=== PATIENT | female | born 1960 | race African-American/Black ===

== ENCOUNTER 2017-01-16 16:52 | Observation (INO) | payer OTHER ==
[~2017-01-16 16:52] MED LIST: ISOVUE-370 76%-LOCM 1 ML ONE
[2017-01-16 17:34] LABS: #Basophils 0.1 thou/uL (0.0-0.2); #Eosinphils 0.1 thou/uL (0.0-0.7); #Lymphocytes 2.7 thou/uL (1.20-3.40); #Monocytes 0.5 thou/uL (0.11-0.59); #Neutrophils 3.1 thou/uL (1.40-6.50); %Basophils 1.6 % (0.0-1.0); %Eosinophils 1.9 % (0.0-10.0); %Monocytes 7.3 % (0.0-10.0); Hematocrit 38.8 % (36.0-47.0); Mean Platelet Volume 7.9 fL (7.4-10.4); Red Blood Cell (RBC) Count 4.17 mill/uL (4.20-5.40); White Blood Cell (WBC) Count 6.5 thou/uL (4.8-10.8)
[2017-01-16 17:41] LABS: PTT 32.8 SEC (22.9-36.1); Prothrombin Time 13.4 SEC (12.0-14.7)
[2017-01-16 18:01] LABS: ALT (SGPT) 28 U/L (8-55); AST (SGOT) 26 U/L (5-34); Alkaline Phosphatase 108 U/L (40-150); Anion Gap 12 mmol/L (10-20); BUN (Urea Nitrogen) 20 mg/dL (9.8-20.1); Bilirubin, Total 0.2 mg/dL (0.2-1.2); CK (CPK) 93 U/L (29-168); Calc. Creatinine Clearance 0 mL/min (70-130); Calcium 9.5 mg/dL (7.8-10.44); Carbon Dioxide 26 mmol/L (22-29); Chloride 104 mmol/L (98-107); Estimated GFR-MDRD 71; Globulin 4.2 g/dL (2.4-3.5); Lipase 37 U/L (8-78)
[2017-01-16 18:02] LABS: Troponin I Less than 0.010 ng/mL (< 0.028)
--- NOTE | 2017-01-16 18:05 | RAD ---
PORTABLE AP CHEST X-RAY 01/16/17 HISTORY: Chest pain. COMPARISON: 01/27/14. FINDINGS: Cardiac silhouette is magnified by projection but does appear mildly enlarged. Calcified mediastinal and left hilar lymph nodes are again seen. Pulmonary vasculature is within normal limits and the marcelina ngs remain clear. There has been no significant interval change when compared to the prior exam. IMPRESSION: 1. No acute cardiopulmonary process. 2. Mild cardiomegaly. POS: [facility]
[2017-01-16] MEDS ORDERED: Nitroglycerin 2% Ointment 1 INCH/1 GM Packet ONE (19:26)
--- NOTE | 2017-01-16 19:37 | CT ---
CT ANGIOGRAM THORAX WITH IV CONTRAST AND 3D RECONSTRUCTIONS 01/16/17 HISTORY: Substernal chest pain with pressure-like symptoms. COMPARISON: 05/22/12. FINDINGS: No filling defects are seen in the pulmonary arteries to suggest a pulmonary embolus. The heart is enlarged. Minimal vascular calcifications are seen in the thoracic aorta. The thoracic aorta is normal in caliber without evidence of an aortic dissection. There are calcified left hilar lymph nodes with a few scattered calcified granulomata within the lungs as well as in the liver and spleen. No noncalcified pulmonary nodule, mass or pleural effusion is seen bilaterally. There is no evidence of lymphadenopathy. There is a heterogeneous structure seen within the fundus of the gallbladder measuring 4.4 cm which may represent a very large gallbladder calculus, but this cannot be definitively confirmed on this e xam. This area was not imaged on the prior study. No adjacent inflammatory changes are appreciated. IMPRESSION: 1. Heterogeneous structure within the gallbladder fundus which is thought to represent a large gallbladder calculus, but this cannot be definitely confirmed on this exam. Nonemergent right upper quadrant ultrasound examination is recommended. 2. No CT evidence of a pulmonary embolus. 3. Cardiomegaly. POS: [facility]
[2017-01-16] MEDS ORDERED: Acetaminophen 325 MG TAB PO PRN ×2 (20:40→20:54)
[2017-01-16 20:50] VITALS: BMI 37.1
[2017-01-16] MEDS ORDERED: Ondansetron ODT 4 MG TAB PO PRN (20:54)
[2017-01-16 21:29] LABS: Troponin I Less than 0.010 ng/mL (< 0.028)
[2017-01-16] MEDS ORDERED: Potassium Chloride 20 MEQ TAB PO SCH (21:30)
[2017-01-16] MEDS ORDERED: diphenhydrAMINE HCl 50 MG/ML 1 ML VIAL IVP PRN (22:24)
[2017-01-16 23:55] LABS: Hemoglobin A1c 5.5 % (4.0-6.0)
[2017-01-17 00:09] LABS: Troponin I Less than 0.010 ng/mL (< 0.028)
--- NOTE | 2017-01-17 04:28 | HP ---
DATE OF ADMISSION: 01/16/2017 ATTENDING: Dr. Katie Bella RESIDENT: Dr. Yamil Jefferson's H\T\P was reviewed and case discussed. Pertinent portions of the history and physical repeated by myself. I agree with the assessment and plan with the following addendum. Ms. Fierro is a 56-year-old female with a history of hypertension who presents today with a midsternal chest pain that she describes as pulling. The pain was relieved by morphine in t he ER. It has currently returned. The EKG remained normal. Her EKG shows signs of LVH, but otherw ise normal. Her troponins are negative x2. She has a heart score of 3 with risk factors including family history of hypertension. We will do a stress test tomorrow given her elevated heart score to rule out coronary artery disease or cardiac ischemia. Her symptoms may also be caused by reflux es ophagitis. We will start Protonix tonight. In addition, she endorses dizzy spells for the last 2we eks. Her lab work is normal with no evidence of anemia or hypothyroidism or any other potential causes fo r her dizziness. Given a negative workup, but she will likely need outpatient evaluation for this. She also has a mildly elevated blood pressure at 167/95. We will restart her home medications and monitor this while she is here.
[2017-01-17 04:57] LABS: Anion Gap 12 mmol/L (10-20); BUN (Urea Nitrogen) 18 mg/dL (9.8-20.1); Calc. Creatinine Clearance 144 mL/min (70-130); Calcium 9.5 mg/dL (7.8-10.44); Carbon Dioxide 22 mmol/L (22-29); Chloride 108 mmol/L (98-107); Estimated GFR-MDRD Greater than 90
--- NOTE | 2017-01-17 05:15 | HP-2 ---
CODE STATUS: Full. PRIMARY CARE PHYSICIAN: Josie Narvaez M.D. ATTENDING PHYSICIAN: Katie Bella D.O. RESIDENT: Yamil Jefferson D.O. HISTORIAN: Patient. SPECIALISTS: None. CHIEF COMPLAINT: Chest pain. HISTORY OF PRESENT ILLNESS: This is a 56-year-old female with the chief complaint of a pulling chest pain that began approximately at 1600 today. She admitted to associated lightheadedness, onset about the same time. She states that she may have passed out in a previous episode of lightheadness 2 weeks ago. She denies any prior history of similar symptoms before these most recent episodes. She describes the pain as nonradiating and constant until she was able to lay in the bed for a little while in the emergency room which allowed the pulling type pain to resolve. She denied any associated nausea, vomiting, shortness of breath, peripheral numbness, left arm or jaw pain. PAST MEDICAL HISTORY: Hypertension, osteoarthritis, prediabetes. PAST SURGICAL HISTORY: None. ALLERGIES: No known drug allergies. MEDICATIONS: Lisinopril/hydrochlorothiazide 10 mg/12.5 mg daily. FAMILY HISTORY: Maternal coronary artery disease. SOCIAL HISTORY: Tobacco; none. Alcohol; none. Drugs; none. REVIEW OF SYSTEMS: GENERAL: The patient denies fever, chills, changes in weight or appetite, night sweats. HEENT: Denies any vision changes, eye pain, nasal congestion or rhinorrhea. RESPIRATORY: Denies any cough, congestion, shortness of breath. CARDIOVASCULAR: Admits to chest pain, denies any palpitations, edema. GI: Denies nausea, vomiting, diarrhea. SKIN: Denies any rash or lesion. MUSCULOSKELETAL: Denies any pain or tenderness. NEUROLOGICAL: Denies any weakness or numbness, possible syncope. PSYCH: Denies any anxiety or depression. PHYSICAL EXAMINATION: VITAL SIGNS: Blood pressure is 167/95, pulse 75, respiratory rate 16, temperature max 98.0, pulse ox 100% on room air. Current weight 104 kilograms. GENERAL: The patient is alert and oriented x3, in no apparent distress. She is obese and appropriately interactive. HEENT: Pupils are equal, round and react to light and accommodation. Extraocular movements are intact. NECK: Neck is supple without lymphadenopathy. CARDIOVASCULAR: Regular rate and rhythm. No murmur or gallops. RESPIRATORY: Normal effort, no retractions. Clear to auscultation bilaterally. SKIN: Warm and dry. No cyanosis. ABDOMEN: Soft, nontender. Bowel sounds in all 4 quadrants. EXTREMITIES: No clubbing, cyanosis or edema. MUSCULOSKELETAL: Tone is normal. NEUROLOGICAL: No focal neurological deficits. Cranial nerves II through XII are grossly intact. PSYCH: Appropriate. LABORATORY: CBC; hemoglobin 12.9, hematocrit 39.8, white count 6.5, platelets 259, MCV 93. CMP; sodium 139, potassium 3.3, chloride 106, bicarbonate 26, BUN 20, creatinine 0.98, glucose 109, calcium 9.5, total serum protein 8.0, albumin 3.8, AST 26, ALT 28, alkaline phosphatase 108, total bilirubin 0.2, PT 13.4, INR 1.0, PTT 32.8, D-dimer 1.05, GFR 71, CK 93, CK-MB 0.8, troponin is negative x2. Lipase 37, BNP is negative. EKG is normal sinus rhythm, T-wave inversions in lead V1 and 2. Left axis deviation. Chest x-ray shows cardiomegaly with no acute processes. CTA shows cardiomegaly with negative PE, possible cholelithiasis. ASSESSMENT AND PLAN: 1. Typical chest pain, rule out cardiac etiology. Continue to trend troponin' s until there are 3 negative. Follow EKG. Admit to telemetry observation. Heart score is 3. Do a stress test in the morning. Order a lipid panel and TSH. 2. Hypertension. Continue home hydrochlorothiazide and lisinopril. The patient has been hypertensive since admission, likely secondary to stress or medication noncompliance. Monitor blood pressure and adjust medications as needed. 3. Prediabetes. Counseled on carb diet and heart healthy diet. Follow up outpatient. Order an A1c today. 4. Hypokalemia. The patient is asymptomatic. We will replace potassium and monitor basic metabolic panel in the morning. 5. D-dimer elevation. The patient has negative CTA. We will monitor clinically and have the patient with SCDs. 6. Possible cholelithiasis on CT. Will get a right upper quadrant ultrasound. This is possible etiology of the pain. 7. Morbid obesity. Counseled on weight loss. [facility] DIVISIONNakul
--- NOTE | 2017-01-17 06:48 | PDOC.FM ---
- Subjective Subjective: Patient had an episode of chest pain yesterday. It was associated with lightheadedness. She now states that is totally resolved. She denies sob, chest pain, cough, fever, or chills. She also denies n/v/d, abdominal pain. She has no other complaints at this time. - Objective Vital Signs & Weight: Vital Signs (12 hours) Temp Pulse Resp BP BP Pulse Ox 01/17/17 03:58 97.8 F 72 16 158/98 H 97 01/16/17 23:26 97.7 F 72 22 H 131/61 97 01/16/17 20:32 98.0 F 66 20 167/95 H 100 01/16/17 20:24 98.0 F 66 20 Weight Weight 107.586 kg I&O: 01/15/17 01/16/17 01/17/17 06:59 06:59 06:59 Intake Total 360 Balance 360 Result Diagrams: 01/16/17 17:24 01/17/17 04:06 <Armando Lorenzana - Last Filed: 01/17/17 11:03> - Objective Vital Signs & Weight: Vital Signs (12 hours) Temp Pulse Resp BP BP Pulse Ox 01/17/17 08:00 98.6 F 65 20 01/17/17 07:12 98.6 F 65 20 151/81 H 98 01/17/17 03:58 97.8 F 72 16 158/98 H 97 Weight Weight 107.586 kg I&O: 01/16/17 01/17/17 01/18/17 06:59 06:59 06:59 Intake Total 360 Balance 360 Result Diagrams: 01/16/17 17:24 01/17/17 04:06 <Aleksandr Portillo - Last Filed: 01/17/17 12:04> Phys Exam - Physical Examination HEENT: moist MMs Neck: no nodes, supple Respiratory: no wheezing, clear to auscultation bilateral Cardiovascular: RRR, no significant murmur Gastrointestinal: soft, non-tender, no distention, positive bowel sounds Musculoskeletal: no edema, pulses present Neurological: non-focal, normal sensation, moves all 4 limbs Psychiatric: normal affect, A&O x 3 <Armando Lorenzana - Last Filed: 01/17/17 11:03> Dx/Plan (1) Atypical chest pain Code(s): R07.89 - OTHER CHEST PAIN Status: Acute Plan: -No more chest pain -Will go for stress this AM. -Pending those results -Troponins negative x3 -ASCVD risk 6.7% will discuss moderate intensity statin therapy as outpatient -May be anxiety component. Will discuss anxiolytic medication -ASCVD risk 10% she will be initiated on statin and ASA as outpatient. (2) Hypertension Code(s): I10 - ESSENTIAL (PRIMARY) HYPERTENSION Status: Acute Plan: -Continue Lisinopril and HCTZ -Will consider increasing regimen to achieve better control. (3) Obesity Code(s): E66.9 - OBESITY, UNSPECIFIED Status: Acute Plan: Counseled on weight loss (4) Cholelithiasis Code(s): K80.20 - CALCULUS OF GALLBLADDER W/O CHOLECYSTITIS W/O OBSTRUCTION Status: Suspected Plan: Pending Abdominal US results (5) Cardiomegaly Code(s): I51.7 - CARDIOMEGALY Status: Acute Plan: -Found on CXR and CTA -Pending ECHO - Plan Plan: Pending test results and discharge planning made from there. <Armando Lorenzana - Last Filed: 01/17/17 11:03> Attending Addendum - Attending Addendum I personally evaluated the patient and discussed the management with Dr. Lorenzana. I agree with the History, Examination, Assessment and Plan documented above with any addition or exceptions noted below. Patient reports no recurrence of chest pain. She is scheduled for stress today and will wait on dispo for those results. Enzymes negative, unlikely cardiac in nature at this time. She will need ASA and statin at time of discharge. Echo pending due to cardiomegaly on XR. <Aleksandr Portillo - Last Filed: 01/17/17 12:04>
--- NOTE | 2017-01-17 08:07 | ULT ---
GALLBLADDER ULTRASOUND: HISTORY: Right upper quadrant pain. FINDINGS: Real-time imaging of the right upper quadrant shows an echogenic area with shadowing in the fundus r egion of the stomach which appears to represent a gallstone in addition to sludge within the gallbla dder. The gallbladder wall is 3-4 mm. It appears slightly thickened. The common duct is 3 mm. Te chnologist reports a negative ultrasound Mcintyre's sign. The pancreas region is unremarkable. The r ight kidney is normal in size and not obstructed. IMPRESSION: Shadowing from the region of the fundus of the stomach which appears to be related to a large gallst one. In addition, there is some tumefactive-appearing sludge seen within the gallbladder. The appe arance of the fundus region is slightly unusual in that the apparent stone is not as dense as typica [place] seen for the degree of shadowing, but it probably still represents a large stone and less likely some type of mass causing shadowing. The technologist reports a negative ultrasound Mcintyre's sign. POS: [facility]
[2017-01-17] MEDS ORDERED: Lisinopril/Hydrochlorothiazide 20/25 mg Tablet PO SCH (09:00)
[2017-01-17 15:23] VITALS: BP 156/96; TEMP 97.6
--- NOTE | 2017-01-18 01:29 | DIS-2 ---
DATE OF ADMISSION: 01/16/2017 DATE OF DISCHARGE: 01/17/2017 RESIDENT: Dr. Armando Lorenzana ADMITTING ATTENDING: Dr. Katie Bella DISCHARGE ATTENDING: Dr. Aleksandr Portillo CONSULTATIONS: None. PROCEDURES: 1. Transthoracic echocardiogram. 2. Exercise treadmill stress test. PRIMARY DIAGNOSES: 1. Atypical chest pain. 2. Hypertension. 3. Obesity. 4. Cardiomegaly. 5. Cholelithiasis. DISCHARGE MEDICATIONS: 1. Lisinopril/hydrochlorothiazide 20/25 mg. 2. Acetaminophen 650 mg. 3. Aspirin 81 mg. 4. Atorvastatin 40 mg. 5. Amlodipine 5 mg. DISCONTINUED MEDICATIONS: None. HISTORY OF PRESENT ILLNESS AND HOSPITAL COURSE: This is a 56-year-old female with a chief complaint of pulling chest pain that began approximately 4 o'clock on the day of admission. She admitted wit h associate lightheadedness onset of the above same time. She states that she may have passed out i n a previous episode of lightheadedness. She was weak. She denies any prior history of similar sym ptoms before these most recent episodes. She describes the pain is nonradiating and constant until she was able to lay in the bed for a little while in the emergency room which allowed the pulling ty pe pain to resolve. She denied any associated nausea, vomiting, shortness of breath, peripheral num bness, left arm or jaw pain. During the hospitalization, she was found to have an elevated D-dimer, lab and so she got a chest, thorax CTA that was negative for any pulmonary embolism. She did have a chest x-ray that showed a cardiomegaly and so that prompted to get an echocardiogram. The echocar diogram showed a left ventricle size being normal, the ejection fraction estimated to be 55-60%. Th e left atrium of normal size, structurally normal mitral valve with no evidence of mitral regurgitat ion and structurally normal aortic valve with no significant stenosis or regurgitation. Tricuspid v alve is structurally normal with trace tricuspid regurgitation. She also had an exercise stress zachary t that was negative for any ischemic pathology and was appropriate for her age other than poor exerc ise tolerance. She also on the CTA was noted to have a gallstone, so an abdominal ultrasound was or dered. The abdominal ultrasound showed a shadowing from the region of the fundus of the stomach, wh ich appears to be related to the large gallstone. In addition, there was some tumefactive appearing sludge seen within the gallbladder. The appearance of the fundus region is slightly unusual and th e apparent stone is not as dense is typically seen for the degree of shadowing, but if probably stil l represents a large stone and less likely some type of mass causing shadowing. The technologist re ports a negative ultrasound Mcintyre's sign. The patient did not have any further problems with chest pain or anything like that. She did have, not an elevated cholesterol, but she had a cholesterol o f 196 with a LDL of 121 and a triglyceride level of 100. She had troponins that were less than 0.01 . She had a hemoglobin A1c of 5.5. We calculated her ASCVD risk and it was about 10%, so it was de termined that she needed to be started on some statin therapy and an aspirin 81 mg going forward and so we initiated those during this hospitalization. She also has been dealing with not well control led hypertension with systolic blood pressures running from 150-180 and diastolic pressures running from 81-111, so she was started on amlodipine 5 mg and instructed to follow up with her primary care physician within 1 week to see if some more medication regimen changes need to be made. She was ot herwise in good condition and was agreeable with all the plans stated above. DISPOSITION: Stable. DISCHARGE INSTRUCTIONS: 1. Location: She will be discharged home into her own care. 2. Diet: Heart healthy diet and we did delinquency counselor on some exercise and weight loss regimen that would help her health out immensely. 3. Activity: As tolerated with no restrictions. 4. Followup: Follow up will be with Dr. Josie Narvaez at [facility] within 1 week. We wish her the best of luck and hope she has no other problems from a cardiac standpoint.
== END 2017-01-17 17:10 | disposition home or self-care (01) ==
LOC: ERS 16:52 → 2SW 19:20
PROVIDERS: ADMIT Family Medicine; ATTEND Family Medicine
DX: R07.89 Other chest pain (principal); I11.9 Hypertensive heart disease without heart failure; K80.20 Calculus of gallbladder without cholecystitis without obstruction; I07.1 Rheumatic tricuspid insufficiency; M19.90 Unspecified osteoarthritis, unspecified site; R73.03 Prediabetes; F17.200 Nicotine dependence, unspecified, uncomplicated; E87.6 Hypokalemia; E66.01 Morbid (severe) obesity due to excess calories; Z68.37 Body mass index [BMI] 37.0-37.9, adult; Z79.82 Long term (current) use of aspirin; Z79.899 Other long term (current) drug therapy; Z82.49 Family history of ischemic heart disease and other diseases of the circulatory system
CPT/HCPCS: 36415; 71010; 71275; 76705; 80048; 80053; 80061; 82553; 83036; 83690; 83880; 84443; 84484; 85025; 85379; 85610; 85730; 93005; 93017; 93306; 94760; 96360; 96361; 96374; G0378; J1200

== ENCOUNTER 2017-02-21 11:28 | Outpatient (CLI) | payer OTHER ==
[2017-02-21 12:35] LABS: Hematocrit 41.5 % (36.0-47.0); Red Blood Cell (RBC) Count 4.43 mill/uL (4.20-5.40); White Blood Cell (WBC) Count 5.1 thou/uL (4.8-10.8)
[2017-02-21 12:52] LABS: ALT (SGPT) 41 U/L (8-55); AST (SGOT) 29 U/L (5-34); Alkaline Phosphatase 112 U/L (40-150); Anion Gap 10 mmol/L (10-20); BUN (Urea Nitrogen) 20 mg/dL (9.8-20.1); Bilirubin, Direct 0.2 mg/dL (0.1-0.3); Bilirubin, Total 0.5 mg/dL (0.2-1.2); Calc. Creatinine Clearance 0 mL/min (70-130); Calcium 9.9 mg/dL (7.8-10.44); Carbon Dioxide 28 mmol/L (22-29); Chloride 103 mmol/L (98-107); Estimated GFR-MDRD 89; Protein, Total 7.9 g/dL (6.0-8.3)
== END 2017-02-21 11:29 | disposition home or self-care (01) ==
LOC: LABBT 11:28
PROVIDERS: ATTEND Specialist
DX: Z01.812 Encounter for preprocedural laboratory examination (principal); K80.00 Calculus of gallbladder with acute cholecystitis without obstruction
CPT/HCPCS: 80048; 80076; 85027

== ENCOUNTER 2017-03-08 21:25 | Emergency (ER) | payer OTHER | END 2017-03-08 22:05 | disposition home or self-care (01) | LOC: ERS 21:25 | DX: H10.9 Unspecified conjunctivitis (principal); I10 Essential (primary) hypertension | CPT/HCPCS: 99283 ==

== ENCOUNTER 2017-09-21 12:16 | Emergency (ER) | payer OTHER | END 2017-09-21 13:15 | disposition home or self-care (01) | LOC: ERS 12:16 | DX: S46.911A Strain of unspecified muscle, fascia and tendon at shoulder and upper arm level, right arm, initial encounter (principal); I10 Essential (primary) hypertension; V49.9XXA Car occupant (driver) (passenger) injured in unspecified traffic accident, initial encounter | CPT/HCPCS: 99283 ==

== ENCOUNTER 2017-12-28 11:09 | Outpatient (CLI) | payer OTHER ==
--- NOTE | 2018-01-02 15:40 | MMO ---
BILATERAL SCREENING MAMMOGRAM: HISTORY: A 57-year-old female. Routine screening mammography. COMPARISON: 08/25/2015, 06/15/2014, 06/11/2013 TECHNIQUE: CC and MLO views of both breasts were submitted for interpretation. This patient's mammogram is revi ewed with the assistance of computer aided detection. FINDINGS: The breasts are composed of scattered fibroglandular tissue. Bilaterally, no suspicious dominant mas s, architectural distortion, or suspicious calcifications. IMPRESSION: BI-RADS Category 2-Benign findings. RECOMMENDATIONS: Annual mammogram. POS: [facility]
== END 2017-12-28 11:10 | disposition home or self-care (01) ==
LOC: SCSMAMMO 11:09
PROVIDERS: ATTEND Family Medicine
DX: Z12.31 Encounter for screening mammogram for malignant neoplasm of breast (principal)
CPT/HCPCS: 77067

== ENCOUNTER 2019-01-28 10:35 | Outpatient (CLI) | payer OTHER ==
--- NOTE | 2019-01-28 11:04 | MMO ---
Bilateral MAMMO Bilat Screen DDI. CLINICAL HISTORY: Patient is 59 years old and is seen for screening. The patient has no family history of breast cancer. The patient has no personal history of cancer. VIEWS: The views performed were: bilateral craniocaudal and bilateral mediolateral oblique. FILMS COMPARED: The present examination has been compared to prior imaging studies performed at [facility] on 08/15/2011, 06/11/2013, 06/15/2014 and 08/25/2015. This study has been interpreted with the assistance of computer-aided detection. MAMMOGRAM FINDINGS: There are scattered fibroglandular densities. There are no suspicious masses, suspicious calcifications, or new areas of architectural distortion. IMPRESSION: THERE IS NO MAMMOGRAPHIC EVIDENCE OF MALIGNANCY. A ROUTINE FOLLOW-UP MAMMOGRAM IN 1 YEAR IS RECOMMENDED. ACR BI-RADS Category 1 - Negative MAMMOGRAPHY NOTE: 1. A negative mammogram report should not delay a biopsy if a dominant of clinically suspicious mass is present. 2. Approximately 10% to 15% of breast cancers are not detected by mammography. 3. Adenosis and dense breasts may obscure an underlying neoplasm. Reported by: CHRISTINA LARSON MD Electonically Signed: [id number]
== END 2019-01-28 10:36 | disposition home or self-care (01) ==
LOC: BICMAMMO 10:35
PROVIDERS: ATTEND Family Medicine
DX: Z12.31 Encounter for screening mammogram for malignant neoplasm of breast (principal)
CPT/HCPCS: 77067

== ENCOUNTER 2019-06-26 11:21 | Emergency (ER) | payer OTHER ==
[2019-06-26] MEDS ORDERED: Ketorolac Tromethamine 30 MG/ML VIAL ONE (13:12)
[2019-06-26] MEDS ORDERED: Diazepam 5 MG TAB ONE (13:13)
[2019-06-26 13:39] LABS: Bacteria/HPF None Seen HPF (None Seen); Bilirubin Negative (Negative); Blood, Urine 2+ (Negative); Clarity Clear (Clear); Glucose, Urine (Dipstick) Normal (Negative); Leukocyte Negative Leu/uL (Negative); Mucous/LPF 1+ LPF (<2+); Nitrite Negative (Negative); Protein, Urine (Dipstick) 10 mg/dL (Neg-Trace); Squamous Epithelial 0-3 HPF (0-3); Urobilinogen Normal mg/dL (Less than 2); WBC/HPF 0-3 HPF (0-3)
== END 2019-06-26 14:02 | disposition home or self-care (01) ==
LOC: ERS 11:21
DX: S39.012A Strain of muscle, fascia and tendon of lower back, initial encounter (principal); I10 Essential (primary) hypertension; Z79.899 Other long term (current) drug therapy; X50.1XXA Overexertion from prolonged static or awkward postures, initial encounter
CPT/HCPCS: 81003; 81015; 96372; 99283; J1885

== ENCOUNTER 2019-08-14 10:19 | Outpatient (CLI) | payer OTHER | END 2019-08-14 10:20 | disposition home or self-care (01) | LOC: CTENTCT 10:19 | PROVIDERS: ATTEND Otolaryngology Plastic Surgery within the Head & Neck | DX: J01.91 Acute recurrent sinusitis, unspecified (principal) | CPT/HCPCS: 70486 ==

== ENCOUNTER 2019-09-16 07:03 | Outpatient (CLI) | payer OTHER ==
[2019-09-16 17:45] LABS: SARS-CoV-2 MS2 Positive; SARS-CoV-2 N Gene Negative; SARS-CoV-2 S Gene Negative; SARS-CoV-2 orf1ab Negative
== END 2019-09-16 07:04 | disposition home or self-care (01) ==
LOC: LABBT 07:03
PROVIDERS: ATTEND Otolaryngology Plastic Surgery within the Head & Neck
DX: Z01.818 Encounter for other preprocedural examination (principal); Z11.59 Encounter for screening for other viral diseases; J01.91 Acute recurrent sinusitis, unspecified; J30.9 Allergic rhinitis, unspecified; J34.2 Deviated nasal septum; J34.3 Hypertrophy of nasal turbinates
CPT/HCPCS: 85014; 87635; 93005; 93010; U0003

== ENCOUNTER 2020-02-17 13:52 | Outpatient (CLI) | payer OTHER ==
--- NOTE | 2020-02-17 16:17 | MMO ---
Bilateral MAMMO Bilat Screen DDI. CLINICAL HISTORY: Patient is 60 years old and is seen for screening. The patient has no family history of breast cancer. The patient has no personal history of cancer. VIEWS: The views performed were: bilateral craniocaudal and bilateral mediolateral oblique. FILMS COMPARED: The present examination has been compared to prior imaging studies performed at [facility] on 06/11/2013, 06/15/2014, 08/25/2015 and 01/28/2019. This study has been interpreted with the assistance of computer-aided detection. MAMMOGRAM FINDINGS: There are scattered fibroglandular densities. There are no suspicious masses, suspicious calcifications, or new areas of architectural distortion. IMPRESSION: THERE IS NO MAMMOGRAPHIC EVIDENCE OF MALIGNANCY. A ROUTINE FOLLOW-UP MAMMOGRAM IN 1 YEAR IS RECOMMENDED. ACR BI-RADS Category 1 - Negative MAMMOGRAPHY NOTE: 1. A negative mammogram report should not delay a biopsy if a dominant of clinically suspicious mass is present. 2. Approximately 10% to 15% of breast cancers are not detected by mammography. 3. Adenosis and dense breasts may obscure an underlying neoplasm. Reported by: JOAQUIN NAVARRO MD Electonically Signed: [id number]
== END 2020-02-17 13:53 | disposition home or self-care (01) ==
LOC: BICMAMMO 13:52
PROVIDERS: ATTEND Family Medicine
DX: Z12.31 Encounter for screening mammogram for malignant neoplasm of breast (principal)
CPT/HCPCS: 77067

== ENCOUNTER 2020-12-28 11:08 | Emergency (ER) | payer OTHER ==
[2020-12-28 11:42] LABS: Mean Corpuscular HGB CONC 31.7 g/dL (32.0-36.0); Mean Corpuscular Hemoglobin 29.1 pg (27.0-31.0); Mean Corpuscular Volume 91.6 fL (78.0-98.0); Mean Platelet Volume 8.2 fL (7.4-10.4); Platelet Count 305 thou/uL (130-400); RBC Distribution Width 12.7 % (11.5-14.5); Red Blood Cell (RBC) Count 4.47 mill/uL (4.20-5.40); White Blood Cell (WBC) Count 3.8 thou/uL (4.8-10.8)
[2020-12-28 12:01] LABS: Band 4 % (5-11); Lymphocytes 39 % (21-51); MDiff Complete? YES; Monocytes 14 % (0-10); Neutrophil 41 % (42-75); Platelet Morphology Comment Appears Adequate; RBC Morphology Normal; Reactive Lymphocytes 1 % (0-10)
[2020-12-28 12:08] LABS: ALT (SGPT) 33 U/L (8-55); AST (SGOT) 30 U/L (5-34); Albumin 3.9 g/dL (3.5-5.0); Alkaline Phosphatase 122 U/L (40-110); Anion Gap 10 mmol/L (10-20); BUN (Urea Nitrogen) 8 mg/dL (9.8-20.1); Bilirubin, Total 0.4 mg/dL (0.2-1.2); Calc. Creatinine Clearance 0 mL/min (70-130); Calcium 9.8 mg/dL (7.8-10.44); Carbon Dioxide 30 mmol/L (22-29); Chloride 100 mmol/L (98-107); Globulin 4.4 g/dL (2.4-3.5); Glucose 104 mg/dL (70-105); Potassium 3.9 mmol/L (3.5-5.1); Protein, Total 8.3 g/dL (6.0-8.3); Sodium 136 mmol/L (136-145)
[2020-12-28] MEDS ORDERED: Aspirin 325 MG TAB ONE (12:42)
== END 2020-12-28 15:12 | disposition home or self-care (01) ==
LOC: ERS 11:08
DX: R07.89 Other chest pain (principal); I10 Essential (primary) hypertension
CPT/HCPCS: 71046; 80053; 84484; 85025; 93005; 94760

== ENCOUNTER 2021-04-06 13:22 | Outpatient (CLI) | payer OTHER | END 2021-04-06 13:23 | disposition home or self-care (01) | LOC: MRI 13:22 | PROVIDERS: ATTEND Student in an Organized Health Care Education/Training Program | DX: M71.21 Synovial cyst of popliteal space [Baker], right knee (principal); S83.231A Complex tear of medial meniscus, current injury, right knee, initial encounter; M24.19 Other articular cartilage disorders, other specified site ==

== ENCOUNTER 2021-09-22 13:28 | Outpatient (CLI) | payer OTHER | END 2021-09-22 13:29 | disposition home or self-care (01) | LOC: ULT 13:28 | PROVIDERS: ATTEND Student in an Organized Health Care Education/Training Program | DX: I10 Essential (primary) hypertension (principal); R60.0 Localized edema; I07.1 Rheumatic tricuspid insufficiency | CPT/HCPCS: 93306 ==

== ENCOUNTER 2021-12-18 13:53 | Emergency (ER) | payer OTHER, SELFPAY ==
[2021-12-18] MEDS ORDERED: Ondansetron PF 4 MG/2 ML Vial ONE (14:31)
[2021-12-18] MEDS ORDERED: Ketorolac Tromethamine 30 MG/ML VIAL ONE (14:31)
[2021-12-18] MEDS ORDERED: Morphine 4 MG/ML VIAL ONE (14:31)
[2021-12-18 14:33] LABS: #Eosinphils 0.1 thou/uL (0.0-0.7); #Lymphocytes 2.1 thou/uL (1.20-3.40); #Monocytes 0.4 thou/uL (0.11-0.59); #Neutrophils 2.7 thou/uL (1.40-6.50); %Basophils 0.4 % (0.0-1.0); %Eosinophils 2.5 % (0.0-10.0); %Lymphocytes 39.7 % (21.0-51.0); %Monocytes 7.8 % (0.0-10.0); %Neutrophils 49.6 % (42.0-75.0); Hemoglobin 12.7 g/dL (12.0-16.0); Mean Corpuscular Hemoglobin 30.3 pg (27.0-31.0); Mean Corpuscular Volume 91.7 fL (78.0-98.0); Mean Platelet Volume 8.4 fL (7.4-10.4); Platelet Count 268 thou/uL (130-400); RBC Distribution Width 12.7 % (11.5-14.5); Red Blood Cell (RBC) Count 4.21 mill/uL (4.20-5.40); White Blood Cell (WBC) Count 5.4 thou/uL (4.8-10.8)
[2021-12-18 15:11] LABS: ALT (SGPT) 26 U/L (8-55); AST (SGOT) 20 U/L (5-34); Albumin 3.8 g/dL (3.5-5.0); Alkaline Phosphatase 82 U/L (40-110); Anion Gap 12 mmol/L (10-20); BUN (Urea Nitrogen) 15 mg/dL (9.8-20.1); Bilirubin, Total 0.4 mg/dL (0.2-1.2); CK (CPK) 66 U/L (29-168); Calc. Creatinine Clearance 0 mL/min (70-130); Calcium 9.3 mg/dL (7.8-10.44); Carbon Dioxide 27 mmol/L (22-29); Chloride 105 mmol/L (98-107); Estimated GFR 82; Globulin 3.8 g/dL (2.4-3.5); Glucose 91 mg/dL (70-105); Lipase 31 U/L (8-78); Potassium 3.9 mmol/L (3.5-5.1); Protein, Total 7.6 g/dL (6.0-8.3); Sodium 140 mmol/L (136-145)
== END 2021-12-18 16:31 | disposition home or self-care (01) ==
LOC: ERS 13:53
DX: K80.80 Other cholelithiasis without obstruction (principal); R07.89 Other chest pain; I10 Essential (primary) hypertension; Z79.899 Other long term (current) drug therapy
CPT/HCPCS: 71045; 76705; 80053; 82550; 83690; 84484; 85025; 93005; 96374; 96375; J1885; J2270; J2405

== ENCOUNTER 2022-02-19 14:06 | Emergency (ER) | payer OTHER ==
[~2022-02-19 14:06] MED LIST changes: -ISOVUE-370 76%-LOCM 1 ML ONE; +Iopamidol-370 76% 500 ML 1 ML ONE
[2022-02-19 14:50] LABS: #Eosinphils 0.1 thou/uL (0.0-0.7); #Lymphocytes 2.4 thou/uL (1.20-3.40); #Monocytes 0.3 thou/uL (0.11-0.59); #Neutrophils 2.2 thou/uL (1.40-6.50); %Basophils 0.8 % (0.0-1.0); %Eosinophils 2.2 % (0.0-10.0); %Lymphocytes 46.9 % (21.0-51.0); %Monocytes 5.8 % (0.0-10.0); %Neutrophils 44.4 % (42.0-75.0); Hemoglobin 13.2 g/dL (12.0-16.0); Mean Corpuscular Hemoglobin 30.2 pg (27.0-31.0); Mean Corpuscular Volume 94.5 fl (78.0-98.0); Mean Platelet Volume 8.1 fL (7.4-10.4); Platelet Count 285 thou/uL (130-400); RBC Distribution Width 12.5 % (11.5-14.5); Red Blood Cell (RBC) Count 4.38 mill/uL (4.20-5.40)
[2022-02-19 15:08] LABS: ALT (SGPT) 18 U/L (8-55); AST (SGOT) 17 U/L (5-34); Albumin 3.9 g/dL (3.4-4.8); Alkaline Phosphatase 90 U/L (40-110); Anion Gap 11 mmol/L (10-20); BUN (Urea Nitrogen) 16 mg/dL (9.8-20.1); Bilirubin, Total 0.2 mg/dL (0.2-1.2); Calc. Creatinine Clearance 0 mL/min (70-130); Calcium 9.6 mg/dL (7.8-10.44); Carbon Dioxide 26 mmol/L (23-31); Chloride 103 mmol/L (98-107); Estimated GFR 88; Globulin 3.9 g/dL (2.4-3.5); Glucose 96 mg/dL (80-115); Lipase 37 U/L (8-78); Potassium 4.1 mmol/L (3.5-5.1); Protein, Total 7.8 g/dL (5.8-8.1); Sodium 136 mmol/L (136-145)
[2022-02-19 17:47] LABS: Bilirubin Negative (Negative); Blood, Urine 1+ (Negative); Clarity Extra Turbid (Clear); Glucose, Urine (Dipstick) Normal (Negative); Ketone, Urine Negative (Negative); Leukocyte Negative Leu/uL (Negative); Nitrite Negative (Negative); Protein, Urine (Dipstick) Negative (Neg-Trace); RBC/HPF 0-3 HPF (0-3); Specific Gravity, Urine 1.027 (1.002-1.036); Urobilinogen Normal mg/dL (Less than 2); WBC/HPF 0-3 HPF (0-3); pH, Urine 5.5 (5.0-9.0)
[2022-02-19 17:48] LABS: Bacteria/HPF Rare-Few HPF (None Seen)
== END 2022-02-19 20:00 | disposition home or self-care (01) ==
LOC: ERS 14:06
DX: R07.89 Other chest pain (principal); I10 Essential (primary) hypertension; Z79.899 Other long term (current) drug therapy
CPT/HCPCS: 36415; 71045; 71275; 80053; 81003; 81015; 83690; 83880; 84484; 85025; 85379; 93005; Q9967

== ENCOUNTER 2022-12-06 10:55 | Outpatient (CLI) | payer OTHER | END 2022-12-06 10:56 | disposition home or self-care (01) | LOC: BICMAMMO 10:55 | PROVIDERS: ATTEND Family Medicine | DX: Z12.31 Encounter for screening mammogram for malignant neoplasm of breast (principal) | CPT/HCPCS: 77067 ==

== ENCOUNTER 2022-12-29 21:29 | Emergency (ER) | payer OTHER ==
[2022-12-29 22:17] LABS: #Eosinphils 0.1 thou/uL (0.0-0.7); #Monocytes 0.4 thou/uL (0.11-0.59); #Neutrophils 2.8 thou/uL (1.40-6.50); %Basophils 0.5 % (0.0-1.0); %Lymphocytes 44.3 % (21.0-51.0); %Monocytes 5.8 % (0.0-10.0); %Neutrophils 47.1 % (42.0-75.0); Hematocrit 38.4 % (36.0-47.0); Hemoglobin 12.3 g/dL (12.0-16.0); Mean Corpuscular Volume 90.6 fl (78.0-98.0); Mean Platelet Volume 10.7 fL (7.4-10.4); Platelet Count 297 10x3/uL (130-400); RBC Distribution Width 13.5 % (11.5-14.5); Red Blood Cell (RBC) Count 4.24 mill/uL (4.20-5.40)
[2022-12-29] MEDS ORDERED: Aspirin Chewable 81 MG TAB ONE (22:31)
[2022-12-29 22:42] LABS: ALT (SGPT) 13 U/L (8-55); AST (SGOT) 14 U/L (5-34); Albumin 3.9 g/dL (3.4-4.8); Alkaline Phosphatase 85 U/L (40-110); Anion Gap 11 mmol/L (10-20); BUN (Urea Nitrogen) 17 mg/dL (9.8-20.1); Bilirubin, Total 0.3 mg/dL (0.2-1.2); Calc. Creatinine Clearance 0 mL/min (70-130); Calcium 9.9 mg/dL (7.8-10.44); Carbon Dioxide 26 mmol/L (23-31); Chloride 106 mmol/L (98-107); Estimated GFR 68; Globulin 3.9 g/dL (2.4-3.5); Glucose 111 mg/dL (80-115); Potassium 3.7 mmol/L (3.5-5.1); Protein, Total 7.8 g/dL (5.8-8.1); Sodium 139 mmol/L (136-145)
[2022-12-29 22:46] LABS: Troponin I Less than 0.010 ng/mL (< 0.028)
== END 2022-12-30 00:36 | disposition home or self-care (01) ==
LOC: ERS 21:29
DX: R07.9 Chest pain, unspecified (principal); I10 Essential (primary) hypertension
CPT/HCPCS: 71045; 80053; 83880; 84484; 85025; 93005

== ENCOUNTER 2023-03-21 13:27 | Outpatient (CLI) | payer OTHER | END 2023-03-21 13:28 | disposition home or self-care (01) | LOC: BICRAD 13:27 | PROVIDERS: ATTEND Nurse Practitioner Family | DX: R05.3 Chronic cough (principal) | CPT/HCPCS: 71046 ==

== ENCOUNTER 2023-11-01 13:41 | Outpatient (CLI) | payer OTHER | END 2023-11-01 13:42 | disposition home or self-care (01) | LOC: ULT 13:41 | PROVIDERS: ATTEND Family Medicine | DX: E01.0 Iodine-deficiency related diffuse (endemic) goiter (principal) | CPT/HCPCS: 76536 ==

== ENCOUNTER 2023-11-04 16:40 | Inpatient (IN) | payer OTHER ==
[2023-11-04] MEDS ORDERED: Dicyclomine 20 MG TAB ONE (17:03)
[2023-11-04] MEDS ORDERED: Ondansetron PF 4 MG/2 ML Vial ONE (17:04)
[2023-11-04] MEDS ORDERED: Famotidine/PF 20 mg/2ml Vial ONE (17:05)
[2023-11-04 17:10] LABS: #Basophils Less than 0.03 10x3/uL (0.0-0.2); %Basophils 0.2 % (0.0-1.0); %Eosinophils 0.4 % (0.0-10.0); %Monocytes 2.7 % (0.0-10.0); %Neutrophils 89.4 % (42.0-75.0); Hemoglobin 14.7 g/dL (12.0-16.0); Mean Corpuscular HGB CONC 32.7 g/dL (32.0-36.0); Mean Corpuscular Hemoglobin 28.9 pg (27.0-31.0); Mean Corpuscular Volume 88.4 fL (78.0-98.0); Mean Platelet Volume 10.5 fL (7.4-10.4); Platelet Count 258 10x3/uL (130-400); Red Blood Cell (RBC) Count 5.09 mill/uL (4.20-5.40)
[2023-11-04 17:30] LABS: Chloride 109 mmol/L (98-107); Sodium 138 mmol/L (136-145)
[2023-11-04 17:31] LABS: Albumin 4.1 g/dL (3.4-4.8); Calcium 9.7 mg/dL (7.8-10.44); Glucose 142 mg/dL (80-115)
[2023-11-04 17:32] LABS: Globulin 4.6 g/dL (2.4-3.5); Protein, Total 8.7 g/dL (5.8-8.1)
[2023-11-04 17:33] LABS: Anion Gap 15 mmol/L (10-20); Carbon Dioxide 19 mmol/L (23-31); Potassium 4.8 mmol/L (3.5-5.1); Troponin I 0.048 ng/mL (< 0.028)
[2023-11-04 17:34] LABS: Alkaline Phosphatase 102 U/L (40-110); Bilirubin, Total 0.6 mg/dL (0.2-1.2)
[2023-11-04 17:35] LABS: Lipase 22 U/L (8-78)
[2023-11-04] MEDS ORDERED: Labetalol HCl 100 MG/20 ML VIAL ONE (17:35)
[2023-11-04 17:36] LABS: BUN (Urea Nitrogen) 20 mg/dL (9.8-20.1); Calc. Creatinine Clearance 0 mL/min (70-130); Estimated GFR 69
[2023-11-04 17:37] LABS: ALT (SGPT) 44 U/L (8-55)
[2023-11-04 17:38] LABS: AST (SGOT) 52 U/L (5-34)
[2023-11-04] MEDS ORDERED: Aspirin Chewable 81 MG TAB ONE (17:40)
[2023-11-04] MEDS ORDERED: Enoxaparin 30 MG (0.3 mL) SYRINGE ONE (18:19)
[2023-11-04] MEDS ORDERED: Enoxaparin 80 MG (0.8 mL) SYRINGE ONE (18:19)
[2023-11-04] MEDS ORDERED: Ondansetron ODT 4 MG TAB PO PRN (19:46)
[2023-11-04] MEDS ORDERED: Bisacodyl 5 MG TAB PO PRN (19:46)
[2023-11-04 20:05] LABS: Troponin I 0.049 ng/mL (< 0.028)
[2023-11-04] MEDS: Lidocaine 2% Viscous 10 mL, Alum & Magn 30 mL SSW SCH (20:12)
[2023-11-04 20:19] VITALS: BMI 40.7
[2023-11-04 20:31] LABS: Hemoglobin A1c 5.9 % (4.0-6.0)
[2023-11-04] MEDS: Amlodipine 5 MG TAB PO SCH (20:40)
[2023-11-04] MEDS: Atorvastatin Calcium 40 MG TAB PO SCH (20:41)
[2023-11-04] MEDS: Carvedilol 25 MG TAB PO SCH (21:18)
[2023-11-05] MEDS: hydrALAZINE 20 MG/ML VIAL SLOW IVP PRN (00:17)
[2023-11-05 05:09] LABS: ALT (SGPT) 31 U/L (8-55); AST (SGOT) 26 U/L (5-34); Albumin 3.2 g/dL (3.4-4.8); Alkaline Phosphatase 71 U/L (40-110); Anion Gap 12 mmol/L (10-20); BUN (Urea Nitrogen) 16 mg/dL (9.8-20.1); Bilirubin, Total 0.6 mg/dL (0.2-1.2); Calc. Creatinine Clearance 134 mL/min (70-130); Calcium 8.8 mg/dL (7.8-10.44); Carbon Dioxide 25 mmol/L (23-31); Chloride 102 mmol/L (98-107); Estimated GFR 82; Globulin 3.6 g/dL (2.4-3.5); Glucose 110 mg/dL (80-115); Potassium 3.6 mmol/L (3.5-5.1); Protein, Total 6.8 g/dL (5.8-8.1); Sodium 135 mmol/L (136-145)
[2023-11-05 08:24] LABS: #Basophils Less than 0.03 10x3/uL (0.0-0.2); %Basophils 0.2 % (0.0-1.0); %Eosinophils 0.6 % (0.0-10.0); %Lymphocytes 21.3 % (21.0-51.0); %Monocytes 6.5 % (0.0-10.0); %Neutrophils 71.2 % (42.0-75.0); Hematocrit 36.2 % (36.0-47.0); Hemoglobin 11.9 g/dL (12.0-16.0); Mean Corpuscular HGB CONC 32.9 g/dL (32.0-36.0); Mean Corpuscular Volume 88.1 fL (78.0-98.0); Mean Platelet Volume 10.3 fL (7.4-10.4); Platelet Count 214 10x3/uL (130-400); RBC Distribution Width 13.9 % (11.5-14.5); Red Blood Cell (RBC) Count 4.11 mill/uL (4.20-5.40)
[2023-11-05] MEDS: Loratadine 10 MG TAB PO SCH (08:41)
[2023-11-05] MEDS: Acetaminophen 325 MG TAB PO PRN (08:41)
[2023-11-05] MEDS: CO Q-10 CAPSULE 100 MG PO SCH (08:41)
[2023-11-05] MEDS: Lisinopril 20 MG TAB PO SCH (08:41)
[2023-11-05] MEDS: Pantoprazole DR 40 MG TAB PO SCH (08:41)
[2023-11-05 09:23] LABS: Troponin I 0.028 ng/mL (< 0.028)
[2023-11-05] MEDS: Enoxaparin 40 MG (0.4 mL) SYRINGE SC SCH ×2 (09:58→20:07)
[2023-11-05] MEDS ORDERED: Regadenoson 0.4 MG/5 ML SYRINGE ONE (11:05)
[2023-11-05] MEDS ORDERED: Carvedilol 25 MG TAB PO SCH ×2 (17:00→21:00)
[2023-11-06] MEDS ORDERED: Melatonin 3 MG TAB PO PRN (01:30)
[2023-11-06 04:13] LABS: #Basophils Less than 0.03 10x3/uL (0.0-0.2); %Basophils 0.4 % (0.0-1.0); %Eosinophils 2.9 % (0.0-10.0); %Lymphocytes 44.9 % (21.0-51.0); %Monocytes 11.6 % (0.0-10.0); Hematocrit 36.1 % (36.0-47.0); Hemoglobin 11.8 g/dL (12.0-16.0); Mean Corpuscular HGB CONC 32.7 g/dL (32.0-36.0); Mean Corpuscular Hemoglobin 28.9 pg (27.0-31.0); Mean Corpuscular Volume 88.5 fL (78.0-98.0); Mean Platelet Volume 10.3 fL (7.4-10.4); Platelet Count 217 10x3/uL (130-400); RBC Distribution Width 13.8 % (11.5-14.5); Red Blood Cell (RBC) Count 4.08 mill/uL (4.20-5.40)
[2023-11-06 04:50] LABS: ALT (SGPT) 25 U/L (8-55); AST (SGOT) 19 U/L (5-34); Albumin 3.1 g/dL (3.4-4.8); Alkaline Phosphatase 84 U/L (40-110); Anion Gap 12 mmol/L (10-20); BUN (Urea Nitrogen) 12 mg/dL (9.8-20.1); Bilirubin, Total 0.2 mg/dL (0.2-1.2); Calc. Creatinine Clearance 149 mL/min (70-130); Calcium 8.8 mg/dL (7.8-10.44); Carbon Dioxide 24 mmol/L (23-31); Chloride 104 mmol/L (98-107); Estimated GFR 93; Globulin 3.5 g/dL (2.4-3.5); Glucose 100 mg/dL (80-115); Potassium 3.2 mmol/L (3.5-5.1); Protein, Total 6.6 g/dL (5.8-8.1); Sodium 137 mmol/L (136-145)
[2023-11-06] MEDS: Potassium Chloride 20 MEQ TAB PO SCH (08:30)
[2023-11-06] MEDS: Carvedilol 25 MG TAB PO SCH (12:51)
[2023-11-06] MEDS ORDERED: Carvedilol 25 MG TAB PO SCH ×2 (13:00→17:00)
[2023-11-06 14:11] VITALS: BP 122/69; TEMP 98.4
== END 2023-11-06 15:12 | disposition home or self-care (01) | DRG 305 ==
LOC: ERS 16:40 → 2SW 18:48 → OBSVTOIN 11-05 10:13
PROVIDERS: ADMIT Family Medicine; ATTEND Family Medicine
DX: I16.0 Hypertensive urgency (principal); Z68.41 Body mass index [BMI] 40.0-44.9, adult; G44.209 Tension-type headache, unspecified, not intractable; R07.89 Other chest pain; E78.5 Hyperlipidemia, unspecified; E66.9 Obesity, unspecified; R11.2 Nausea with vomiting, unspecified; R19.7 Diarrhea, unspecified; Z79.899 Other long term (current) drug therapy; R74.01 Elevation of levels of liver transaminase levels
CPT/HCPCS: 36415; 71045; 78452; 80053; 83036; 83690; 84484; 85025; 93005; 93017; 93306; 94760; 96361; 96372; 96374; 96375; 96376; A9502; G0378; J0360; J1650; J2405; J2785; S0028